=== PATIENT | female | born 1960 | race Caucasian/White ===

== ENCOUNTER 2019-07-10 21:06 | Emergency (ER) | payer BC ==
[2019-07-10 21:46] VITALS: BP 190/102; PULSE 80; O2SAT 98
--- NOTE | 2019-07-10 22:03 | ERPHSYRPT ---
- History of Present Illness Time Seen by Provider: 07/10/19 21:58 Source: patient Exam Limitations: no limitations Patient Subjective Stated Complaint: pt states the dome from her hearing aid is stuck in her lt ear Triage Nursing Assessment: pt alert and oriented, answers questions approp. pt ambulatory with steady gait noted, respirations nonlabored. skin pink warm and dry. plastic object visualized in lt ear canal Physician History: Dome of her hearing aid came off and is stuck in ear. Pt says second time today ; first time was retrieved with "long tweezers"; she placed a new one on her hearing aid, took it out one time to check on it and then again and it had come off again. Timing/Duration: abrupt onset Severity: mild ENT Location: ear (L) Prearrival Treatment: no prearrival treatment Modifying Factors: Improves With: nothing Associated Symptoms: denies symptoms Allergies/Adverse Reactions: cephalexin monohydrate [From [email or web address]] Allergy (Verified 07/10/19 22:42) Home Medications: Bupropion HCl [Wellbutrin Xl] 300 mg PO DAILY 04/26/14 [History] Doxepin HCl 10 mg PO HS PRN PRN 04/26/14 [History] Ferrous Sulfate 325 mg [Feosol 325 mg] 325 mg PO BID 04/26/14 [History] Liothyronine Sodium [Cytomel] 25 mcg PO DAILY 04/26/14 [History] Lisinopril/Hydrochlorothiazide [Lisinopril-Hctz 20-12.5 mg Tab] 1 each PO DAILY 04/26/14 [History] Metformin HCl Xr 500 mg [Glucophage XR 500 MG] 500 mg PO DAILY 04/26/14 [ History] Milnacipran HCl [Savella] 50 mg PO BID 04/26/14 [History] PANTOPRAZOLE 40 mg Tablet [Protonix 40MG Tablet] 40 mg PO DAILY 04/26/14 [ History] Hx Tetanus, Diphtheria Vaccination/Date Given: Yes Hx Influenza Vaccination/Date Given: No Hx Pneumococcal Vaccination/Date Given: No Immunizations Up to Date: Yes - Review of Systems Constitutional: No Symptoms Ears, Nose, & Throat: Other (L ear no pain but is location of FB in ear) All Other Systems: Reviewed and Negative - Past Medical History Pertinent Past Medical History: Yes Neurological History: No Pertinent History Cardiac History: Hypertension Endocrine Medical History: Thyroid Cancer Psycho-Social History: Anxiety, Depression Other Medical History: brain tumor. septic shock - Past Surgical History Past Surgical History: Yes Neuro Surgical History: Neurological Surgery Cardiac: Pacemaker Gastrointestinal: Cholecystectomy Musculoskeletal: Orthopedic Surgery Other Surgical History: mult RIGHT SHOUDLER SURGERY, - Social History Smoking Status: Current every day smoker Exposure to second hand smoke: Yes Alcohol Use: None Drug Use: none Patient Lives Alone: No Significant Family History: no pertinent family hx - Nursing Vital Signs Nursing Vital Signs: Initial Vital Signs Pulse Rate 80 07/10/19 21:37 Respiratory Rate 16 07/10/19 21:37 Blood Pressure 190/102 07/10/19 21:37 O2 Sat by Pulse Oximetry 98 07/10/19 21:37 Pain Scale Pain Intensity 0 - Physical Exam General Appearance: no apparent distress Ear Exam: left ear: TM normal (unable to visualize; FB in canal) Nasal Exam: normal inspection Neck Exam: normal inspection, non-tender SpO2 Interpretation: normal SpO2: 98 O2 Delivery: Room Air Procedures - Additional Procedures Progress: Foreign body removal L external canal; patient tolerated procedure well. No external canal damage. - Course Nursing assessment & vital signs reviewed: Yes - Progress Progress: improved Progress Note: 07/11/19 02:40 FB removed from L external canal. - Departure Departure Disposition: Home Clinical Impression: Foreign body in ear Qualifiers: Encounter type: subsequent encounter Laterality: left Qualified Code(s): T16.2XXD - Foreign body in left ear, subsequent encounter Condition: Stable Critical Care Time: No Referrals: BRANDAN TANG MD [Primary Care Provider] - Instructions: Removing Objects Stuck in the Ear Additional Instructions: Discuss with ENT or hearing aid distributor the situation which develped today with two identical issues of loss of part of the ear piece.
== END 2019-07-10 23:03 | disposition home or self-care (01) ==
LOC: ED 21:06
DX: T16.2XXD Foreign body in left ear, subsequent encounter (principal)
CPT/HCPCS: 69200; 99283